=== PATIENT | male | born 1960 ===

== ENCOUNTER 2018-01-09 11:46 | Outpatient (CLI) | payer OTHER ==
[~2018-01-09] VITALS: Ht 152.4 cm; Wt 60.8 kg
== END 2018-01-09 12:00 | disposition home or self-care (01) ==
LOC: OFIC 805 11:46
DX: H81.11 Benign paroxysmal vertigo, right ear (principal)

== ENCOUNTER → 2018-01-09 | Outpatient (CLI) | payer OTHER | END | disposition home or self-care (01) | LOC: PPHC 11:04 | DX: R42 Dizziness and giddiness (principal) ==

== ENCOUNTER 2018-01-30 10:21 | Outpatient (CLI) | payer OTHER ==
[~2018-01-30] VITALS: Ht 152.4 cm; Wt 60.8 kg
== END 2018-01-30 10:40 | disposition home or self-care (01) ==
LOC: OFIC 805 10:21
DX: H81.12 Benign paroxysmal vertigo, left ear (principal)